=== PATIENT | male | born 1990 | race Asian ===

== ENCOUNTER 2021-05-31 04:44 | Day surgery (SDC) | payer OTHER ==
[2021-05-30 10:51] VITALS: BMI 27.6
[2021-05-31] MEDS ORDERED: PROPOFOL 20 ML ONE (19:28)
[2021-05-31] MEDS ORDERED: MIDAZOLAM HCL 2 MG/2 ML SINGLE DOSE VIAL ONE (19:28)
[2021-05-31] MEDS ORDERED: ceFAZolin SODIUM 1 GM VIAL IVPB ONE (19:29)
[2021-05-31] MEDS ORDERED: PROMETHAZINE HCL 25 MG/1 ML VIAL IVPUSH PRN (19:50)
[2021-05-31] MEDS ORDERED: ONDANSETRON 4 MG/2 ML VIAL IVPUSH PRN (19:50)
[2021-05-31] MEDS ORDERED: oxyCODONE HCL 5 MG TABLET PO PRN (19:50)
[2021-05-31 21:01] VITALS: BP 127/81; PULSE 89; TEMP 97.4
== END 2021-05-31 21:12 | disposition home or self-care (01) ==
LOC: JASU-SURG 04:44
PROVIDERS: ATTEND Urology
PROC: 0TND8ZZ Release Urethra, Via Natural or Artificial Opening Endoscopic (ICD-10-PCS; principal; 2021-05-31 15:00)
DX: R39.198 Other difficulties with micturition (principal); N32.0 Bladder-neck obstruction
CPT/HCPCS: 87086; 94760